=== PATIENT | male | born 1940 | race Caucasian/White ===

== ENCOUNTER → 2018-11-18 | Outpatient (CLI) | payer MEDICARE, OTHER ==
[~2018-11-18] MED LIST: ATENOLOL50 MG PO; NO HOME MEDICATIONS
== END ==
LOC: COL.VAS 10:50
DX: I34.0 Nonrheumatic mitral (valve) insufficiency (principal)

== ENCOUNTER 2021-08-22 12:28 | Inpatient (IN) | payer MEDICARE, OTHER ==
[~2021-08-22] VITALS: Wt 167.4 kg
[2021-08-22] VITALS (47 sets, daily range): BP systolic 110–127; BP diastolic 60–71; PULSE 101–108; TEMP 98–98.8; O2SAT 77–100
[2021-08-22 14:03] LABS: COLLECTION METHOD CLEAN CATCH
[2021-08-22 14:07] LABS: BASO # 0.1 K/mm3 (0.0-0.2); BASO % 1.2 % (0.0-2.0); EOS # 0.3 K/mm3 (0.0-0.7); EOS % 3.6 % (0.0-4.0); GRAN # 4.6 K/mm3 (1.4-6.5); HEMATOCRIT 37.1 % (42.0-52.0); HEMOGLOBIN 12.2 g/dl (13.5-18.0); LYMPH # 1.5 K/mm3 (1.2-3.4); LYMPH % 20.3 % (20.0-51.0); MEAN CELL VOLUME 90 fl (80.0-100.0); MEAN CORPUSCULAR HEMOGLOBIN 30 pg (27-31); MEAN CORPUSCULAR HGB CONC 33 g/dl (33.0-37.0); MEAN PLATELET VOLUME 8.6 fl (7.4-10.4); MONO # 0.8 K/mm3 (0.1-0.6); MONO % 10.6 % (1.7-9.3); PLATELET COUNT 326 K/mm3 (130-400); RED BLOOD COUNT 4.12 M/mm3 (4.20-5.60); REDCELL DISTRIBUTION WIDTH-CV 12.8 % (11.5-14.5)
[2021-08-22 14:14] LABS: MUCOUS Present (NOT PRESENT); PH 6 (5-8); SQUAMOUS EPITHELIAL 0-2 /hpf (0-10); URINE APPEARANCE Clear (CLEAR/HAZY); URINE BACTERIA None Seen /hpf (NONE SEEN); URINE BILIRUBIN Negative (NEGATIVE); URINE BLOOD Negative (NEGATIVE); URINE COLOR Yellow (YELLOW); URINE GLUCOSE Negative (NEGATIVE); URINE KETONE Negative (NEGATIVE); URINE LEUKOCYTE ESTERASE 3+ (NEGATIVE); URINE NITRATE Negative (NEGATIVE); URINE PROTEIN(semi-quant) Negative (NEGATIVE); URINE RBC 0-2 /hpf (0-2)
[2021-08-22 14:25] LABS: ALANINE AMINOTRANSFERASE 19 U/L (0-55); ALBUMIN 3.5 gm/dL (3.4-4.8); ALKALINE PHOSPHATASE 77 U/L (40-150); ANION GAP 10 mmol/L (7-16); AST,SGOT 19 U/L (5-34); BILIRUBIN,TOTAL 0.6 mg/dL (0.2-1.2); BLOOD UREA NITROGEN 20 mg/dL (8-26); CALCIUM 8.9 mg/dL (8.4-10.2); CARBON DIOXIDE 23 mmol/L (23-31); CHLORIDE 106 mmol/L (98-107); GLUCOSE 95 mg/dL (70-99); POTASSIUM 4.4 mmol/L (3.5-4.5); SODIUM 139 mmol/L (136-145); TOTAL PROTEIN 6.3 gm/dL (6.2-8.1)
[2021-08-22 14:26] LABS: ACETAMINOPHEN < 1.0 ug/mL (10-30); SALICYLATE < 5.0 mg/dL (15.0-30.0)
--- NOTE | 2021-08-22 17:10 | NUR ---
Arrived to the unit from the ER. Alert and partially oriented. Able to follow simple commands and respond to basic questions. When asking about specific health questions patient states "I don't know, ask Melanie". Melanie is patient's care-taker. Patient denies any pain or other concerns. Discussed plan of care. Will continue to monitor.
[2021-08-22] MEDS ORDERED: SINEQUAN 1010 MG/CAP PO (18:31)
[2021-08-22] MEDS ORDERED: PLAVIX 75MG TAB75 MG PO (18:32)
[2021-08-22] MEDS ORDERED: AZOR 5 MG-20 MG1 TAB PO (18:34)
--- NOTE | 2021-08-22 18:41 | NUR ---
Notified hospitalist of elevated urine wbc count. Will order urine culture and initiate abx.
--- NOTE | 2021-08-22 19:41 | NUR ---
Discussed plan of care with Coco from poison control. Will obtain another EKG and monitor QRS width. No other changes to care required.
[2021-08-22 19:47] LABS: CALCIUM 9.6 mg/dL (8.4-10.2); CREATININE, serum 1.02 mg/dL (0.72-1.25); POTASSIUM 3.7 mmol/L (3.5-4.5)
[2021-08-23] VITALS (254 sets, daily range): BP systolic 109–136; BP diastolic 59–73; PULSE 77–105; TEMP 97.4–98.3; O2SAT 94–100
[2021-08-23 05:43] LABS: BASO % 0.4 % (0.0-2.0); EOS # 0.3 K/mm3 (0.0-0.7); EOS % 3.8 % (0.0-4.0); GRAN # 3.9 K/mm3 (1.4-6.5); GRAN % 57.6 % (42.2-75.2); HEMOGLOBIN 10.7 g/dl (13.5-18.0); LYMPH # 1.8 K/mm3 (1.2-3.4); LYMPH % 26.1 % (20.0-51.0); MEAN CELL VOLUME 92 fl (80.0-100.0); MEAN CORPUSCULAR HEMOGLOBIN 30 pg (27-31); MEAN CORPUSCULAR HGB CONC 33 g/dl (33.0-37.0); MEAN PLATELET VOLUME 8.7 fl (7.4-10.4); MONO # 0.8 K/mm3 (0.1-0.6); PLATELET COUNT 297 K/mm3 (130-400); RED BLOOD COUNT 3.59 M/mm3 (4.20-5.60); REDCELL DISTRIBUTION WIDTH-CV 12.9 % (11.5-14.5)
[2021-08-23 05:57] LABS: HEMATOCRIT 32.9 % (42.0-52.0)
[2021-08-23 06:12] LABS: CALCIUM 8.3 mg/dL (8.4-10.2); CREATININE, serum 1.04 mg/dL (0.72-1.25); POTASSIUM 4.1 mmol/L (3.5-4.5)
--- NOTE | 2021-08-23 09:46 | NUR ---
Initial visit; Patient thanked [employer] Ro[employer] Helper for looking in on him and offering to keep him in her prayers. Terra [employer] Ro[employer]er Helper offered God's blessings.
--- NOTE | 2021-08-23 15:36 | NUR ---
RECIEVED REPORT FROM ALYSHA VEGA.
--- NOTE | 2021-08-23 15:59 | NUR ---
[employer] Teacher met with patient to complete initial intake. Patient states he lives alone in [place] and sees Dr. Kumari for primary care. SW asked patient about plan to move to Assisted Living (which was in patient's H&P). Patient states he plans to move somewhere in [place]. While talking with patient, JUSTIN received a phone call from patient's son, Farshad. Farshad advised that patient has been living with their family friend, Melanie (ph#[phone]) in [place] and they are working on moving him to a new apartment in [place]. Farshad advised patient is independent with ADLS and has no need for AL. Farshad states he feels patient can return home with Melanie. JUSTIN then was contacted by patient's other son, Gennaro (ph#[phone]) who advised patient has had a decline recently which resulted in him moving in with Melanie. Gennaro stated patient does not have advance directives. Gennaro advised they have DPOA-HC form but have not completed it. Gennaro advised patient is not and he and Farshad are his only two children. JUSTIN reviewed PT/OT recommendation with Gennaro who is agreeable to SNF referrals. JUSTIN faxed referrals to [facility] and [facility]. Discharge Plan: SNF referrals pending
--- NOTE | 2021-08-23 16:23 | NUR ---
PT ADMITTED TO UNIT. ORIENTED TO ROOM. ASSESSMENT COMPLETED. WILL CONTINUE TO MONITOR.
--- NOTE | 2021-08-23 20:00 | NUR ---
Bedside report received, assumed care for awake overnight counselor. Assessment complete. A&Ox3. Denies pain/nausea/shortness of breath. VS remain stable. Tele reporting S-DYS. Very impulsive and easily angered by staff trying to assist. Is very unsteady on feet but wont let staff in room to help. INT to right forearm flushes well. Right IJ triple lumen flushes well with good blood return. Plan of care discussed for this shift to include meds/TELE/calling for questions/concerns. Verbalizes understanding/denies needs. Call light in reach. Will monitor.
[2021-08-24 00:10] VITALS: BP 144/46; PULSE 89; TEMP 98.7
--- NOTE | 2021-08-24 01:43 | NUR ---
Patient continues to be impulsive setting off bed alarm to go to bathroom. Easily angered with staff tries to assist.
[2021-08-24 03:50] VITALS: BP 154/77; PULSE 94; TEMP 98.5
--- NOTE | 2021-08-24 05:29 | NUR ---
pharm tech reporting heart rate increased up to 130s. Patient up to bathroom. Has been up several times this shift to urinate. HR currently 92
[2021-08-24 06:59] LABS: BASO # 0.1 K/mm3 (0.0-0.2); BASO % 0.8 % (0.0-2.0); EOS # 0.3 K/mm3 (0.0-0.7); EOS % 5.4 % (0.0-4.0); GRAN # 3.4 K/mm3 (1.4-6.5); GRAN % 54.9 % (42.2-75.2); HEMOGLOBIN 11.6 g/dl (13.5-18.0); LYMPH # 1.7 K/mm3 (1.2-3.4); LYMPH % 27.3 % (20.0-51.0); MEAN CELL VOLUME 91 fl (80.0-100.0); MEAN CORPUSCULAR HEMOGLOBIN 30 pg (27-31); MEAN CORPUSCULAR HGB CONC 33 g/dl (33.0-37.0); MEAN PLATELET VOLUME 8.8 fl (7.4-10.4); MONO # 0.7 K/mm3 (0.1-0.6); MONO % 11.4 % (1.7-9.3); PLATELET COUNT 295 K/mm3 (130-400); RED BLOOD COUNT 3.92 M/mm3 (4.20-5.60)
[2021-08-24 07:13] LABS: CALCIUM 8.6 mg/dL (8.4-10.2); CREATININE, serum 0.94 mg/dL (0.72-1.25); POTASSIUM 4.4 mmol/L (3.5-4.5)
[2021-08-24 07:24] VITALS: BP 129/72; PULSE 86; TEMP 97.2
[2021-08-24 07:41] LABS: HEMATOCRIT 35.5 % (42.0-52.0)
[2021-08-24 11:38] VITALS: BP 91/59; PULSE 88; TEMP 98
[2021-08-24 16:02] VITALS: BP 95/58; PULSE 98; TEMP 98.9
--- NOTE | 2021-08-24 18:05 | NUR ---
NO SIGNS OF BLEEDING NOTED THIS SHIFT, PT COGNITIVE AT BASELINE WITH SOME INTERMITTENT CONFUSION. PT REMAINS PLEASANT AND COOPERATIVE WITH THIS NURSE. VSS, 02 ROOM AIR, RIJ INTACT, C/D/I. ALL NEEDS MET THIS SHIFT. CALL LIGHT IWTHIN REACH.
[2021-08-24 20:11] VITALS: BP 103/52; PULSE 93; TEMP 98.4
[2021-08-25] VITALS (7 sets, daily range): BP systolic 105–129; BP diastolic 48–68; PULSE 79–94; TEMP 97.5–98.2
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
[2021-08-25 07:35] LABS: CALCIUM 8.1 mg/dL (8.4-10.2); CREATININE, serum 1.31 mg/dL (0.72-1.25); POTASSIUM 4.2 mmol/L (3.5-4.5)
[2021-08-25 07:46] LABS: BASO # 0.1 K/mm3 (0.0-0.2); BASO % 0.7 % (0.0-2.0); EOS # 0.3 K/mm3 (0.0-0.7); EOS % 4.4 % (0.0-4.0); GRAN # 3.8 K/mm3 (1.4-6.5); GRAN % 56.2 % (42.2-75.2); LYMPH # 1.9 K/mm3 (1.2-3.4); LYMPH % 27.6 % (20.0-51.0); MEAN CELL VOLUME 92 fl (80.0-100.0); MEAN CORPUSCULAR HEMOGLOBIN 30 pg (27-31); MEAN CORPUSCULAR HGB CONC 32 g/dl (33.0-37.0); MEAN PLATELET VOLUME 8.9 fl (7.4-10.4); MONO # 0.7 K/mm3 (0.1-0.6); MONO % 10.8 % (1.7-9.3); PLATELET COUNT 299 K/mm3 (130-400); RED BLOOD COUNT 3.68 M/mm3 (4.20-5.60); REDCELL DISTRIBUTION WIDTH-CV 13.2 % (11.5-14.5)
[2021-08-25 07:49] LABS: HEMATOCRIT 33.9 % (42.0-52.0)
--- NOTE | 2021-08-25 10:21 | NUR ---
JUSTIN met with family and pt to talk about DPOA-HC paperwork. Pt would like to complete paperwork. Pt DPOA-HC is son, Gennaro. JUSTIN and Ghada ENCARNACION witness pt signing DPOA-hc paperwork. JUSTIN made copies for pt and put DPOA-HC in chart.
--- NOTE | 2021-08-26 00:44 | NUR ---
PATIENT DOING WELL TONIGHT. ALERT AND ORIENTED. TELE REPORTING SR. NEURO CHECKS WNL. R IJ DRESSING CHANGED. IVF INFUSING INTO BLUE PORT. R FA IV PATENT AND FLUSHES. VOIDED IN URINAL TONIGHT. DENIES PAIN. DENIES NAUSEA. L ELBOW SKIN TEAR DRESSED WITH PADDED DRESSING. CURRENTLY RESTING IN BED. CALL LIGHT WITHIN REACH.
[2021-08-26 04:06] VITALS: BP 131/67; PULSE 81; TEMP 97.5
[2021-08-26 06:52] LABS: BASO # 0.1 K/mm3 (0.0-0.2); BASO % 0.8 % (0.0-2.0); EOS # 0.3 K/mm3 (0.0-0.7); EOS % 4.5 % (0.0-4.0); GRAN # 3.4 K/mm3 (1.4-6.5); GRAN % 56.5 % (42.2-75.2); LYMPH # 1.7 K/mm3 (1.2-3.4); LYMPH % 28.1 % (20.0-51.0); MEAN CELL VOLUME 91 fl (80.0-100.0); MEAN CORPUSCULAR HEMOGLOBIN 30 pg (27-31); MEAN CORPUSCULAR HGB CONC 33 g/dl (33.0-37.0); MEAN PLATELET VOLUME 8.8 fl (7.4-10.4); MONO # 0.6 K/mm3 (0.1-0.6); MONO % 9.8 % (1.7-9.3); PLATELET COUNT 287 K/mm3 (130-400); REDCELL DISTRIBUTION WIDTH-CV 12.9 % (11.5-14.5)
[2021-08-26 06:58] LABS: CALCIUM 8.2 mg/dL (8.4-10.2); CREATININE, serum 1.21 mg/dL (0.72-1.25); POTASSIUM 4.3 mmol/L (3.5-4.5)
[2021-08-26 07:07] LABS: HEMATOCRIT 33.5 % (42.0-52.0)
--- NOTE | 2021-08-26 08:00 | NUR ---
PT SLEEPING UPON ENTRY, AOX4, MEDICATIONS GIVEN, ASSESSMENT PERFORMED, SKIN TEAR TO RUE COVERED WITH FOAM DRESSING. PT HAS MUTLIPLE TATTOOS ON BUE AND BLE, PT APPEARS ANNOYED WITH STAFF AND INTERVENTIONS AT THIS TIME, RIJ FLUSHED W/O RESISTANCE, IVF INFUSING, NO OTHER NEEDS AT THIS TIME. BREAKFAST AT BEDSIDE.
[2021-08-26 08:08] VITALS: BP 136/83; PULSE 73; TEMP 98.1
--- NOTE | 2021-08-26 10:06 | NUR ---
Clinical updates faxed to [facility] and [facility] for SNF. Messages left for both facilities to follow up on referral.
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
--- NOTE | 2021-08-26 10:25 | NUR ---
[facility] cannot accept this patient due to his confusion. Car[facility] reports that they do not have a special care bed open at this time.
[2021-08-26 11:27] VITALS: BP 156/86; PULSE 87; TEMP 98.2
--- NOTE | 2021-08-26 13:06 | NUR ---
[facility] accepts patient. Patient and PA notified and covid swab requested.
[2021-08-26] MEDS ORDERED: DOXYCYCLINE 10100 MG PO (14:27)
[2021-08-26] MEDS ORDERED: OMNICEF 300MG300 MG PO (14:28)
[2021-08-26 17:01] VITALS: BP 157/84; PULSE 88; TEMP 98.1
--- NOTE | 2021-08-26 17:17 | NUR ---
PT PLEASANT, AOX4, PT WANTS TO BE INDEPENDENT WITH CARES AND GETS FRUSTRATED THAT HE CANNOT BE LEFT ALONE DURING URINATION OR AMBULATION. UNEVENTFUL SHIFT OVERALL, FLUIDS INFUSING PER ORDER, BED ALARM ON, PT IMPULSIVE AND FREQUENTLY GETS UP ON HIS OWN, YELLOW GOWN AND OTHER FALL RISK PRECAUTIONS IN PLACE, NO OTHER NEEDS AT THIS TIME
[2021-08-26 19:43] VITALS: BP 136/58; PULSE 77; TEMP 97.7
--- NOTE | 2021-08-26 23:32 | NUR ---
ALERT AND OX3. DENIES SOA, CHEST PAIN OR DIZZY. IV FLUIDS RUNNING PER ORDER TO RT IJ. POSSIBLE DC TO [facility] 08/27. NEURO INTACT. TELE NSR. CALL LIGHT WI REACH. POC DISCUSSED.
[2021-08-26 23:36] VITALS: BP 107/51; PULSE 89; TEMP 98.4
[2021-08-27 03:21] VITALS: BP 147/79; PULSE 97; TEMP 97.8
--- NOTE | 2021-08-27 06:30 | NUR ---
THE PATIENT IS AWAKE AND ALERT. SITTING AT BEDSIDE, HAD USED HIS URINAL BUT "DUMPED IT". PT DENIES ANY NEEDS AT THIS TIME. WILL CONTINUE TO MONITOR.
[2021-08-27 06:41] LABS: BASO # 0.1 K/mm3 (0.0-0.2); BASO % 0.9 % (0.0-2.0); EOS # 0.3 K/mm3 (0.0-0.7); EOS % 4.5 % (0.0-4.0); GRAN % 59.7 % (42.2-75.2); HEMOGLOBIN 10.6 g/dl (13.5-18.0); LYMPH # 1.7 K/mm3 (1.2-3.4); LYMPH % 25.9 % (20.0-51.0); MEAN CELL VOLUME 89 fl (80.0-100.0); MEAN CORPUSCULAR HEMOGLOBIN 29 pg (27-31); MEAN CORPUSCULAR HGB CONC 33 g/dl (33.0-37.0); MEAN PLATELET VOLUME 8.9 fl (7.4-10.4); MONO # 0.6 K/mm3 (0.1-0.6); MONO % 8.7 % (1.7-9.3); PLATELET COUNT 267 K/mm3 (130-400); RED BLOOD COUNT 3.66 M/mm3 (4.20-5.60); REDCELL DISTRIBUTION WIDTH-CV 13.1 % (11.5-14.5)
[2021-08-27 06:48] LABS: HEMATOCRIT 32.5 % (42.0-52.0)
[2021-08-27 07:05] LABS: CALCIUM 8.1 mg/dL (8.4-10.2); CREATININE, serum 1.02 mg/dL (0.72-1.25); POTASSIUM 4.1 mmol/L (3.5-4.5)
[2021-08-27 08:05] VITALS: BP 138/69; PULSE 82; TEMP 98.1
--- NOTE | 2021-08-27 09:26 | NUR ---
Clinical updates faxed to Cornell at [facility]. Message left to arrange transportation time. Patient presented MCR.IM form. This SW read form aloud to patient and her verbalized his understanding. Patient's signed copy placed in chart and original provided to the patient.
--- NOTE | 2021-08-27 10:19 | NUR ---
Patient's discharge orders and covid result faxed to Cornell at [facility]. Per Cornell, transportation can be here between [phone] to transfer the patient. Patient, patient's son and RN notified. Encouraged RN that if they cannot get through for nurse to nurse report to let me know. Discharge plan: [facility] [id number]
[2021-08-27 11:04] VITALS: BP 135/66; PULSE 87; TEMP 97.9
[2021-08-27 12:56] VITALS: BP 135/66; PULSE 87; TEMP 97.9
== END 2021-08-27 13:15 | DRG 918 ==
LOC: COL.ER 12:28 → ICU 15:48 → MEDICAL 08-23 16:14
PROVIDERS: Nurse Practitioner Primary Care; Physician Assistant; ADMIT Student in an Organized Health Care Education/Training Program
DX: T45.521A Poisoning by antithrombotic drugs, accidental (unintentional), initial encounter (principal); T43.011A Poisoning by tricyclic antidepressants, accidental (unintentional), initial encounter; T46.1X1A Poisoning by calcium-channel blockers, accidental (unintentional), initial encounter; T46.5X1A Poisoning by other antihypertensive drugs, accidental (unintentional), initial encounter; F03.90 Unspecified dementia, unspecified severity, without behavioral disturbance, psychotic disturbance, mood disturbance, and anxiety; I10 Essential (primary) hypertension; I48.91 Unspecified atrial fibrillation; G47.00 Insomnia, unspecified; I95.9 Hypotension, unspecified; B96.20 Unspecified Escherichia coli [E. coli] as the cause of diseases classified elsewhere; B95.8 Unspecified staphylococcus as the cause of diseases classified elsewhere; L97.509 Non-pressure chronic ulcer of other part of unspecified foot with unspecified severity; Z20.822 Contact with and (suspected) exposure to COVID-19; Z79.02 Long term (current) use of antithrombotics/antiplatelets
CPT/HCPCS: 99223-AI; 99232-AI; 99233-AI; 99239; J0610; J0696; J7030; J7060